=== PATIENT | male | born 1950 | race Caucasian/White ===

== ENCOUNTER 2017-05-04 10:33 | Outpatient (CLI) | payer MEDICARE, OTHER ==
[2017-05-04 11:08] LABS: eGFR (African) > 60; eGFR (Non-African) 54
== END 2017-05-04 10:34 ==
LOC: LAB 10:33
PROVIDERS: ATTEND Nurse Practitioner Family
DX: N28.9 Disorder of kidney and ureter, unspecified (principal)
CPT/HCPCS: 36415; 80053

== ENCOUNTER → 2017-05-11 | Outpatient (CLI) | payer MEDICARE, OTHER ==
[2017-05-11 17:07] LABS: eGFR (African) 60; eGFR (Non-African) 49
== END ==
LOC: LAB 16:06
PROVIDERS: ATTEND Nurse Practitioner Family
DX: N28.9 Disorder of kidney and ureter, unspecified (principal)
CPT/HCPCS: 36415; 80053